=== PATIENT | female | born 1950 | race Caucasian/White ===

== ENCOUNTER 2017-06-11 21:00 | Emergency (ER) | payer OTHER ==
--- NOTE | 2017-06-11 21:08 | EDPHY ---
H & P Time Seen by Provider: 06/11/17 21:04 HPI/ROS: CHIEF COMPLAINT: Left shoulder pain HISTORY OF PRESENT ILLNESS: The patient is a 67-year-old female who was walking to the football game this evening when she tripped and fell onto an outstretched arm. She had immediate pain to her left shoulder. She denies other injuries. She did not hit her head. She denies neck pain. She denies any significant past medical history. REVIEW OF SYSTEMS: Constitutional: denies: chills, fever, recent illness, recent injury EENTM: denies: blurred vision, double vision, nose congestion Respiratory: denies: cough, shortness of breath Cardiac: denies: chest pain, irregular heart rate, lightheadedness, palpitations Gastrointestinal/Abdominal: denies: abdominal pain, diarrhea, nausea, vomiting, blood streaked stools Genitourinary: denies: dysuria, frequency, hematuria, pain Musculoskeletal: See HPI Skin: denies: lesions, rash, jaundice, bruising Neurological: denies: headache, numbness, paresthesia, tingling, dizziness, weakness Hematologic/Lymphatic: denies: blood clots, easy bleeding, easy bruising Immunologic/allergic: denies: HIV/AIDS, transplant EXAM: GENERAL: Well-appearing, well-nourished and in no acute distress. HEAD: Atraumatic, normocephalic. EYES: Pupils equal round and reactive to light, extraocular movements intact, sclera anicteric, conjunctiva are normal. ENT: TMs normal, nares patent, oropharynx clear without exudates. Moist mucous membranes. NECK: Normal range of motion, supple without lymphadenopathy or JVD. LUNGS: Breath sounds clear to auscultation bilaterally and equal. No wheezes rales or rhonchi. HEART: Regular rate and rhythm without murmurs, rubs or gallops. ABDOMEN: Soft, nontender, normoactive bowel sounds. No guarding, no rebound. No masses appreciated. BACK: No CVA tenderness, no spinal tenderness, step-offs or deformities EXTREMITIES: Left shoulder deformity with step-off, normal pulses and sensation distally. NEUROLOGICAL: Cranial nerves II through XII grossly intact. Normal speech, normal gait. 5/5 strength, normal movement in all extremities, normal sensation PSYCH: Normal mood, normal affect. SKIN: Warm, dry, normal turgor, no visible rashes or lesions. Source: Patient, EMS Exam Limitations: No limitations - Medical/Surgical History Hx Asthma: No Hx Chronic Respiratory Disease: No Hx Diabetes: No Hx Cardiac Disease: No Hx Renal Disease: No Hx Cirrhosis: No Hx Alcoholism: No - Family History Significant Family History: No pertinent family hx - Social History Alcohol Use: Sober Drug Use: None Constitutional: Initial Vital Signs Temperature (C) 36.9 C 06/11/17 21:03 Heart Rate 74 06/11/17 21:03 Respiratory Rate 16 06/11/17 21:03 Blood Pressure 143/81 H 06/11/17 21:03 O2 Sat (%) 91 L 06/11/17 21:03 O2 Delivery Mode [Post Room Air Procedure 2nd] O2 Delivery Mode [Post Non-Rebreather Mask Procedure 1st] O2 Delivery Mode [Procedural Non-Rebreather Mask 1st] O2 Delivery Mode [.Immediate Non-Rebreather Mask Pre-Procedure] O2 Delivery Mode Room Air O2 (L/minute) [Post Procedure 15 1st] O2 (L/minute) [Procedural 1st] 15 O2 (L/minute) [.Immediate Pre- 15 Procedure] O2 (L/minute) 2 Allergies/Adverse Reactions: No Known Allergies Allergy (Unverified 06/11/17 21:05) Home Medications: Medication Instructions Recorded SIMVASTATIN 06/11/17 oxyCODONE/APAP 5/325 [Percocet 1 - 2 tab PO Q4-6PRN PRN #14 tab 06/11/17 5/325 (RX)] Medical Decision Making - Diagnostics Imaging Results: Imaging Impressions Shoulder X-Ray 06/11/17 21:07 Impression: Left shoulder fracture dislocation. Procedures: Procedure: Procedural sedation. Indication: Shoulder reduction. A pre-sedation evaluation was completed on the patient just prior to the procedure. Patient is an appropriate candidate for procedural sedation with a normal 3-3-2 rule assessment and a Mallampati airway score of class to. The risks of the sedation were discussed including but not limited to dysrhythmia, need for airway intervention or general anesthesia, disability, ; and verbal consent obtained. A timeout was observed and patient's identity confirmed. The patient was sedated with ketamine and propofol. The patient was monitored with continuous pulse oximetry, capnography, and telemetry monitor. There were no complications and no significant hypoxemia. I remained at the bedside for the sedation. The total time I spent in the procedural sedation was 16 minutes. Procedure: Dislocation reduction. The shoulder was reduced in the usual fashion using the [employer]'s technique and scapular manipulation without complications. Post reduction the patient's neurovascular exam is normal. Post reduction x-ray demonstrates reduction of the joint to the anatomic position with fracture now posterior. The procedure was performed by myself. ED Course/Re-evaluation: 10:15 p.m. I injected the patient's joint with 20 cc 1% lidocaine for pain control to attempt reduction. The patient after 20 minutes still having significant pain and cannot move her arm. We will sedate for reduction. 11:30 p.m. I discussed the case with Dr. Adriel Moon who agrees with the treatment thus far and follow up in 1 week. He states that they may need to operate if the fracture remains displaced. Differential Diagnosis: Partial list of the Differential diagnosis considered include but were not limited to; shoulder dislocation, fracture and although unlikely based on the history and physical exam, I also considered neck injury, head injury, elbow injury. I discussed these differential diagnoses and the plan with the patient as well as the usual and expected course. The patient understands that the diagnosis is provisional and that in medicine we are not always correct and that further workup is often warranted. Usual and customary warnings were given. All of the patient's questions were answered. The patient was instructed to return to the emergency department should the symptoms at all worsen or return, otherwise to followup with the physician as we discussed. - Data Points Medications Given: Discontinued Medications Hydromorphone HCl (Dilaudid) 1 mg IVP EDNOW ONE Stop: 06/11/17 21:14 Last Admin: 06/11/17 21:14 Dose: 1 mg Departure - Departure Disposition: Home, Routine, Self-Care Clinical Impression: Fracture dislocation of left shoulder joint Condition: Fair Instructions: Shoulder Dislocation (ED), Scapular Fracture (ED), Oxycodone/ Acetaminophen (By mouth) Additional Instructions: You have a fracture of the greater tuberosity of your shoulder. Follow up with Orthopedics as discussed in about 1 week. Wear the sling for comfort until that time. Referrals: Patient,NotPresent [Unknown] - As per Instructions Adriel Moon MD [Medical Doctor] - As per Instructions Prescriptions: oxyCODONE/APAP 5/325 [Percocet 5/325 (RX)] 1 - 2 tab PO Q4-6PRN PRN #14 tab PRN Reason: Pain
[2017-06-11] MEDS ORDERED: HYDROmorphONE/DILAUDID 1 MG/ML INJ ONE (21:12)
[2017-06-11] MEDS ORDERED: HYDROmorphONE/DILAUDID 1 MG/ML INJ IVP ONE (21:13)
[2017-06-11] MEDS ORDERED: KETAMINE 100 MG/10 ML SYR ONE (22:24)
[2017-06-11] MEDS ORDERED: PROPOFOL 200 MG/20 ML VIAL ONE (22:24)
[2017-06-11] MEDS ORDERED: KETAMINE 100 MG/10 ML SYR IVP ONE (22:50)
[2017-06-11] MEDS ORDERED: PROPOFOL 200 MG/20 ML VIAL IVP ONE (22:50)
[2017-06-11 23:13] VITALS: TEMP 97.5
[2017-06-11] MEDS ORDERED: OXYCODONE/APAP 5/325MG PREPACK#4 BTL TAKEHOME ONE (23:15)
[2017-06-12 00:25] VITALS: RESP 18
[2017-06-12 02:28] VITALS: BP 136/77; PULSE 80; O2SAT 96
== END 2017-06-12 02:31 | disposition home or self-care (01) ==
PROC: 0RSKXZZ Reposition Left Shoulder Joint, External Approach (ICD-10-PCS; principal; 2017-06-11)
DX: S43.015A Anterior dislocation of left humerus, initial encounter (principal); W01.0XXA Fall on same level from slipping, tripping and stumbling without subsequent striking against object, initial encounter; Y99.8 Other external cause status; Y93.01 Activity, walking, marching and hiking
CPT/HCPCS: 23650; 73030; 96374; 99152; 99285; A4565; J1170; J2704